=== PATIENT | female | born 1970 ===

== ENCOUNTER 2017-03-10 11:28 | Emergency (ER) | payer OTHER ==
--- NOTE | 2017-03-10 12:01 | C.PDOC ---
History Of Present Illness 46F c/o pain in her RUQ rad to her back constant for 3 days. worse w breathing. no other exac or reliev fx. tried ibuprofen. ?mild dysuria. no f/c, n/v. psh hysterectomy. denies other pmh. Time Seen by Provider: 03/10/17 11:48 Chief Complaint (Nursing): Back Pain Past Medical History Vital Signs: Last Vital Signs Temp 98.2 F 03/10/17 11:45 Pulse 81 03/10/17 11:45 Resp 16 03/10/17 11:45 BP 128/76 03/10/17 11:45 Pulse Ox 98 03/10/17 12:13 Surgical History: Appendectomy Other Surgeries: hysterectomy Family History: States: Other Other Family History: nc - Social History Hx Alcohol Use: No Hx Substance Use: No - Immunization History Hx Tetanus Toxoid Vaccination: No Hx Influenza Vaccination: No Hx Pneumococcal Vaccination: No Review Of Systems Except As Marked, All Systems Reviewed And Found Negative. Constitutional: Negative for: Fever, Chills Respiratory: Positive for: Pleuritic Pain. Negative for: Cough, Shortness of Breath Gastrointestinal: Positive for: Abdominal Pain. Negative for: Nausea, Vomiting , Diarrhea Genitourinary: Positive for: Dysuria Neurological: Negative for: Weakness, Numbness Physical Exam - Physical Exam Appears: Well, Non-toxic, No Acute Distress Skin: Warm, Dry Head: Atraumatic Eye(s): bilateral: PERRL Nose: No Epistaxis Oral Mucosa: Moist Cardiovascular: Rhythm Regular Respiratory: No Decreased Breath Sounds, No Accessory Muscle Use, No Rales, No Rhonchi, No Stridor, No Wheezing Gastrointestinal/Abdominal: Soft, Tenderness (RUQ) Back: No CVA Tenderness Extremity: No Swelling Pulses: Left Radial: Normal, Right Radial: Normal Neurological/Psych: Oriented x3, Normal Motor, Normal Sensation, Other (no focal deficit) ED Course And Treatment - Laboratory Results Result Diagrams: 03/10/17 12:32 03/10/17 12:32 O2 Sat by Pulse Oximetry: 98 Medical Decision Making Medical Decision Makin pt resting quietly no distress. disc results, plan for rx, f/u, and rtr PROCEDURE: CT scan abdomen and pelvis dated 03/10/2017 HISTORY: Flank pain eval for ureteral stone COMPARISON: No prior TECHNIQUE: Contiguous axial images of the abdomen and pelvis. Oral contrast was administered. No IV contrast given. Coronal and Sagittal reformats generated. Radiation dose: Total exam DLP = 313.67 mGy-cm. This CT exam was performed using one or more of the following dose reduction techniques: Automated exposure control, adjustment of the mA and/or kV according to patient size, and/or use of iterative reconstruction technique. FINDINGS: LOWER THORAX: Minimal passive atelectasis both posterior lower lung regalado. There appears to be some minor scarring changes in the middle lobe and lingular regions. Lung bases are. Otherwise clear without infiltrate effusion or basilar pneumothorax. Tiny hiatal hernia. Heart size within range of normal. No significant pericardial effusion. LIVER: Liver exhibits normal size measuring approximately 16 cm in CC dimension. No obvious hepatic mass collection or calcification. No significant intrahepatic biliary ductal Dilatation. GALLBLADDER AND BILE DUCTS: Gallbladder is physiologically distended. No evidence of intraluminal gallbladder calculi. PANCREAS: Unremarkable. No mass. No ductal dilatation. SPLEEN: Unremarkable. No splenomegaly. ADRENALS: Unremarkable. KIDNEYS AND URETERS: Punctate calcifications seen upper pole collecting system right kidney. There is a tiny approximately 3.2 mm calculus upper/ midpole collecting system left kidney. No significant hydronephrosis. BLADDER: Small approximately 4.86 mm calcifications seen within the left parasagittal posterior margin of the urinary bladder lumen consistent with recently passed kidney stone. REPRODUCTIVE: Status post hysterectomy APPENDIX: Appendix is not seen with complete certainty however no obvious inflammatory changes right lower quadrant of the abdomen. BOWEL: Evaluation of the bowel is limited due to lack of oral contrast material. The stomach is incompletely distended. Visualized loops of small bowel exhibit normal contour and caliber. No evidence acute mechanical small bowel obstruction. Moderate amount of stool seen within at cecum, ascending and to a lesser degree transverse colon consistent with mild fecal retention/constipation PERITONEUM: Unremarkable. No fluid collection. No free air. LYMPH NODES: Unremarkable. No enlarged lymph nodes. VASCULATURE: Unremarkable. No aortic aneurysm. BONES: No fracture or destructive lesion. OTHER FINDINGS: None. IMPRESSION: Bilateral nephrolithiasis as described. There is a small calculus seen in the left parasagittal posterior margin of the urinary bladder consistent with recently passed right renal stone. . No evidence of significant hydronephrosis. There is another tiny at calcifications seen in the left inferior posterior margin of the pelvis felt to dorsal to the expected location of the distal left ureter. Clinical correlation recommended. Disposition - Disposition Disposition: HOME/ ROUTINE Disposition Time: 17:50 Condition: STABLE Forms: [facility] (Hebrew) - Clinical Impression Clinical Impression: Ureteral colic
[2017-03-10 12:38] LABS: BASO # 0.1 K/uL (0.0-0.2); BASO % 0.6 % (0.0-2.0); EOS # 0.1 K/uL (0.0-0.7); EOS % 1.5 % (0.0-4.0); HEMATOCRIT 38.1 % (34.0-47.0); LYMPH # 2.4 K/uL (1.0-4.3); LYMPH % 28.4 % (20.0-40.0); MEAN CELL VOLUME 87.6 fL (81.0-99.0); MEAN CORPUSCULAR HEMOGLOBIN 30.5 pg (27.0-31.0); MEAN CORPUSCULAR HGB CONC 34.8 g/dL (33.0-37.0); MEAN PLATELET VOLUME 7.4 fL (7.2-11.7); MONO # 0.8 K/uL (0.0-0.8); MONO % 9.3 % (0.0-10.0); RED CELL DISTRIBUTION WIDTH 12.2 % (11.5-14.5); WHITE BLOOD COUNT 8.6 K/uL (4.8-10.8)
[2017-03-10 12:47] LABS: RBC URINE 11 /hpf (0-3); URINE BILIRUBIN NEGATIVE (NEGATIVE); URINE BLOOD 2+ (NEGATIVE); URINE COLOR Yellow (YELLOW); URINE GLUCOSE (UA) NORMAL (Normal); URINE KETONE NEGATIVE (NEGATIVE); URINE LEUKOCYTE ESTERASE NEG Leu/uL (Negative); URINE PROTEIN NEGATIVE (NEGATIVE); URINE UROBILINOGEN NORMAL mg/dL (0.2-1.0); WBC URINE 1 /hpf (0-5)
[2017-03-10] MEDS ORDERED: Piperacill/Tazo 3.375gm in Dex 3.375 GM/50 ML BAG IVPB STA (12:47)
[2017-03-10] MEDS ORDERED: Sodium Chloride 0.9% 1,000 ML IV ONE (12:47)
[2017-03-10 12:51] LABS: ALB/GLOB RATIO 1.4 (1.0-2.1); ALKALINE PHOSPHATASE 69 U/L (38-126); ALT/SGPT 32 U/L (9-52); AST/SGOT 26 U/L (14-36); BILIRUBIN,TOTAL 0.6 mg/dL (0.2-1.3); BLOOD UREA NITROGEN 15 mg/dL (7-17); CALCIUM 9.5 mg/dl (8.6-10.4); CARBON DIOXIDE 27 mmol/L (22-30); CHLORIDE 101 mmol/L (98-107); GFR AFRICAN-AMERICAN > 60; GLUCOSE,RANDOM 82 mg/dL (65-105); POTASSIUM 3.6 mmol/L (3.6-5.2); SODIUM 139 mmol/L (132-148); TOTAL PROTEIN 7.6 g/dL (6.3-8.3)
[2017-03-10] MEDS ORDERED: Sodium Chloride 0.9% 1,000 ML ONE (13:12)
--- NOTE | 2017-03-10 13:59 | RAD ---
HISTORY: right side pain COMPARISON: No prior. TECHNIQUE: Chest PA and lateral FINDINGS: LUNGS: No focal consolidation. The interstitial markings are slightly increased and coarsened ; rule out sequela of reactive/ inflammatory airway disease. PLEURA: Mild biapical pleural thickening. No significant pleural effusion identified. No pneumothorax apparent. CARDIOVASCULAR: Normal. OSSEOUS STRUCTURES: Mild side bending and/or levoscoliosis centered in the upper thoracic region. VISUALIZED UPPER ABDOMEN: Normal. OTHER FINDINGS: None. IMPRESSION: No focal consolidation. The interstitial markings are slightly increased and coarsened ; rule out sequela of reactive/ inflammatory airway disease.
--- NOTE | 2017-03-10 15:18 | US ---
HISTORY: RUQ pain COMPARISON: None. TECHNIQUE: Sonographic evaluation of the right upper quadrant of the abdomen. FINDINGS: LIVER: Liver exhibits normal size measuring approximately 16 cm in CC dimension. Liver demonstrates smooth contour and normal echotexture. No obvious hepatic mass or collection. Portal vein exhibits hepatopetal flow. GALLBLADDER: Gallbladder appears contracted likely due to nonfasting state. No evidence of intraluminal gallbladder calculi. . COMMON BILE DUCT: Common bile duct measures approximately 4.7 mm no stones. No dilatation. PANCREAS: Unremarkable as visualized. No mass. No ductal dilatation. RIGHT KIDNEY: Measures approximately 10.3 x 4.5 x 5.3 cm in length. Normal echogenicity. No calculus, mass, or hydronephrosis. AORTA: No aneurysmal dilatation. IVC: Unremarkable. OTHER FINDINGS: None . IMPRESSION: Contracted gallbladder. No evidence of intraluminal gallbladder calculi. .
--- NOTE | 2017-03-10 17:35 | CT ---
PROCEDURE: CT scan abdomen and pelvis dated 03/10/2017 HISTORY: Flank pain eval for ureteral stone COMPARISON: No prior TECHNIQUE: Contiguous axial images of the abdomen and pelvis. Oral contrast was administered. No IV contrast given. Coronal and Sagittal reformats generated. Radiation dose: Total exam DLP = 313.67 mGy-cm. This CT exam was performed using one or more of the following dose reduction techniques: Automated exposure control, adjustment of the mA and/or kV according to patient size, and/or use of iterative reconstruction technique. FINDINGS: LOWER THORAX: Minimal passive atelectasis both posterior lower lung regalado. There appears to be some minor scarring changes in the middle lobe and lingular regions. Lung bases are. Otherwise clear without infiltrate effusion or basilar pneumothorax. Tiny hiatal hernia. Heart size within range of normal. No significant pericardial effusion. LIVER: Liver exhibits normal size measuring approximately 16 cm in CC dimension. No obvious hepatic mass collection or calcification. No significant intrahepatic biliary ductal Dilatation. GALLBLADDER AND BILE DUCTS: Gallbladder is physiologically distended. No evidence of intraluminal gallbladder calculi. PANCREAS: Unremarkable. No mass. No ductal dilatation. SPLEEN: Unremarkable. No splenomegaly. ADRENALS: Unremarkable. KIDNEYS AND URETERS: Punctate calcifications seen upper pole collecting system right kidney. There is a tiny approximately 3.2 mm calculus upper/ midpole collecting system left kidney. No significant hydronephrosis. BLADDER: Small approximately 4.86 mm calcifications seen within the left parasagittal posterior margin of the urinary bladder lumen consistent with recently passed kidney stone. REPRODUCTIVE: Status post hysterectomy APPENDIX: Appendix is not seen with complete certainty however no obvious inflammatory changes right lower quadrant of the abdomen. BOWEL: Evaluation of the bowel is limited due to lack of oral contrast material. The stomach is incompletely distended. Visualized loops of small bowel exhibit normal contour and caliber. No evidence acute mechanical small bowel obstruction. Moderate amount of stool seen within at cecum, ascending and to a lesser degree transverse colon consistent with mild fecal retention/constipation PERITONEUM: Unremarkable. No fluid collection. No free air. LYMPH NODES: Unremarkable. No enlarged lymph nodes. VASCULATURE: Unremarkable. No aortic aneurysm. BONES: No fracture or destructive lesion. OTHER FINDINGS: None. IMPRESSION: Bilateral nephrolithiasis as described. There is a small calculus seen in the left parasagittal posterior margin of the urinary bladder consistent with recently passed right renal stone. . No evidence of significant hydronephrosis. There is another tiny at calcifications seen in the left inferior posterior margin of the pelvis felt to dorsal to the expected location of the distal left ureter. Clinical correlation recommended.
[2017-03-10 18:12] VITALS: BP 135/82; PULSE 73; RESP 18; TEMP 97.9; O2SAT 100
--- NOTE | 2017-03-11 17:50 | CARD ---
APPROVED REPORT EKG Measurement Heart [id number] <Conclusion> Normal sinus rhythm Normal ECG
== END 2017-03-10 18:13 | disposition home or self-care (01) ==
LOC: C.ER 11:28
DX: N20.0 Calculus of kidney (principal)
CPT/HCPCS: 36415; 71020; 74176; 76705; 80053; 81001; 83690; 84703; 85025; 85378; 93005; 96361; 96374; 99284; J1885; J7040